=== PATIENT | female | born 1995 | race American Indian/Alaskan Native ===

== ENCOUNTER 2017-03-14 17:37 | Inpatient (IN) | payer OTHER ==
[2017-03-14] MEDS ORDERED: Fluarix Quad 2017-2018(36 MOS+ IM ONE (18:56)
[2017-03-14] MEDS ORDERED: POLYCILLIN/NS 2 GM/100 ML 2 GM/100 ML BAG IV ONE (19:10)
[2017-03-14 19:22] LABS: Urine Drugs of Abuse Note Disclamer
[2017-03-14 19:37] LABS: Bilirubin,Urine NEG (Negative); Blood,Urine SM (Negative); Ketones,Urine NEG (Negative); Leukocyte Esterase,Urine SM (Negative); Nitrite,Urine NEG (Negative); Protein,Urine <15 mg/dL mg/dL (Negative); Urobilinogen,Urine < 2.0 mg/dL (<2.0)
--- NOTE | 2017-03-14 20:24 | Ultrasound Report ---
FINAL REPORT PROCEDURE: US OB FOLLOW UP TECHNIQUE: Real-time limited sonographic examination was performed for evaluation of size, position, heartbeat, fluid volume for each fetus with image documentation (1 or more fetuses). CPT 43107 HISTORY: Evaluate age COMPARISON: No prior studies are available for comparison. FINDINGS: There is a single living intrauterine gestation currently visualize vertex presentation with heart rate of 159 beats per minute. The amount of amniotic fluid subjectively appears normal. Normal amniotic fluid index measured at 13.3 centimeter. The placenta is located fundal and is grade 2. The internal cervical os is not visualized. Detailed exam of the anatomy was not performed as this was not requested. measurements were obtained: Biparietal diameter 8.4 centimeter equaled 34 weeks 0 days Head circumference 30.1 centimeter equaled 33 week 3 day Abdominal circumference 29.2 centimeter equaled 33 week 1 day Femur length 6.6 centimeter equaled 34 week 0 day Estimated weight 2210 grams. This equals 4 pounds 14 ounces +/-12 ounces Average sonographic age 33 weeks 5 days placing the EDC 04/27/2017 +/-3 weeks IMPRESSION: Single living intrauterine gestation visualized currently vertex presentation. Subjectively and by amniotic fluid index the amount of amniotic fluid appears normal. Average sonographic age by today's study 33 weeks 5 days. This places the EDC at 04/27/2017 +/-3 weeks. Further evaluation was neither requested nor performed.
[2017-03-14 20:55] LABS: Basophils % (Auto) 0.3 % (0.0-1.8); Eosinophils % (Auto) 0.2 % (0.0-4.3); Hematocrit 34.2 % (30.3-42.9); Hemoglobin 10.9 gm/dl (10.1-14.3); Mean Corpuscular HGB Conc 32 % (30-34); Mean Corpuscular Volume 75 fl (79-97); Platelet Count 290 K/mm3 (140-440); Red Blood Count 4.57 M/mm3 (3.65-5.03); Red Cell Distribution Width 16.4 % (13.2-15.2); White Blood Count 13.9 K/mm3 (4.5-11.0)
[2017-03-14] MEDS ORDERED: AMBIEN PO PRN (21:07)
[2017-03-14] MEDS ORDERED: BENADRYL PO PRN (21:07)
[2017-03-14] MEDS ORDERED: MYLICON PO PRN (21:07)
[2017-03-14] MEDS ORDERED: ZOFRAN IV PRN (21:07)
[2017-03-14] MEDS ORDERED: COLACE PO PRN (21:07)
[2017-03-14] MEDS ORDERED: DEEP SEA NS PRN (21:07)
[2017-03-14] MEDS ORDERED: TYLENOL PO PRN (21:07)
[2017-03-14 21:13] LABS: Mean Corpuscular Hemoglobin 24 pg (28-32)
[2017-03-14 21:30] LABS: HIV-1 Antigen p24 Non React (Non React); HIVR-1/2 Ab Non React (Non React)
[2017-03-14] MEDS ORDERED: LACTATED RINGERS 1,000 ML IV SCH (22:00)
[2017-03-14] MEDS ORDERED: CELESTONE SOLUSPAN IM SCH (22:00)
[2017-03-14] MEDS: POLYCILLIN/NS 1 GM/50 ML 1 GM/50 ML BAG IV SCH (22:47)
[2017-03-15] MEDS: POLYCILLIN/NS 1 GM/50 ML 1 GM/50 ML BAG IV SCH (02:42)
[2017-03-15] MEDS: LACTATED RINGERS 1,000 ML IV SCH ×3 (02:42→13:07)
[2017-03-15] MEDS ORDERED: ERY-TAB PO SCH (05:00)
--- NOTE | 2017-03-15 05:11 | History and Physical Report ---
History of Present Illness Date of examination: 03/15/17 Date of admission: 03/14/17 17:38 Chief complaint: rupture of membranes History of present illness: Pt is a 21 year old primigravida with unknown LMP in October 2016 at 33w6d (JENNIFFER ) by ultrasound today who presented on 03/14/17 from the office with rupture of membranes at 0630 am 03/14/17. She presented on 03/14/17 to [facility] to establish care with suspicion that she was 17 wks , but her fundal height was much larger than expected and pooling was noted on speculum exam. She has had no care this . Since admission she has had an ultrasound on 03/14/17 that gives an JENNIFFER of at 33w5d, cephalic, ROCIO 13.3 cm. Fundal grade 1 placenta. EFW 2210g. Past History Past Medical History: other (obesity ) Past Surgical History: no surgical history Family/Genetic History: diabetes, hypertension Social history: no significant social history - Obstetrical History Expected Date of Delivery: 04/27/17 Actual Gestation: 33 Week(s) 6 Day(s) : 1 Para: 0 Medications and Allergies Allergies Allergy/AdvReac Type Severity Reaction Status Date / Time No Known Allergies Allergy Unverified 03/14/17 17:54 Home Medications Medication Instructions Recorded Confirmed Last Taken Type One Daily Tablet 1 tab PO QDAY 03/14/17 03/14/17 03/14/17 10:00 History Active Meds: Active Medications Acetaminophen (Tylenol) 650 mg PO Q4H PRN PRN Reason: Pain MILD(1-3)/Fever >100.5/ARGUELLES Amoxicillin (Trimox) 250 mg PO Q8HR [facility]ANGO PRN Reason: Protocol Stop: 03/21/17 21:14 Betamethasone Acet/Betameth SodPhos (Celestone Soluspan) 12 mg IM Q24H [facility] Stop: 03/15/17 22:01 Last Admin: 03/14/17 22:39 Dose: 12 mg Diphenhydramine HCl (Benadryl) 25 mg PO Q6H PRN PRN Reason: Itching Docusate Sodium (Colace) 100 mg PO Q12H PRN PRN Reason: Constipation Erythromycin (Marciano-Tab) 250 mg PO Q6H [facility] PRN Reason: Protocol Stop: 03/21/17 21:59 Last Admin: 03/15/17 05:04 Dose: 250 mg Lactated Ringer's (Lactated Ringers) 1,000 mls @ 125 mls/hr IV DIRECT CHILANGO Last Admin: 03/15/17 02:42 Dose: 125 mls/hr Lactated Ringer's (Lactated Ringers) 1,000 mls @ 125 mls/hr IV DIRECT CHILANGO Last Admin: 03/15/17 04:25 Dose: 125 mls/hr Ampicillin Sodium (Polycillin/Ns 2 Gm/100 Ml) 2 gm in 100 mls @ 100 mls/hr IV Q6H [facility] Stop: 03/17/17 17:29 Multivitamins/Iron/Calcium ( Vitamin) 1 each PO QDAY [facility] Simethicone (Mylicon) 80 mg PO Q6H PRN PRN Reason: Gas pain Sodium Chloride (Deep Sea) 2 spray NS Q4H PRN PRN Reason: Congestion Zolpidem Tartrate (Ambien) 10 mg PO ONCE PRN PRN Reason: Sleep Review of Systems All systems: negative - Vital Signs Vital signs: Vital Signs Temp Pulse Resp BP 98.2 F 104 H 18 132/80 03/14/17 18:31 03/14/17 18:31 03/14/17 18:31 03/14/17 18:31 Temp Pulse Resp BP Pulse Ox 98.5 F 129 H 18 117/62 100 03/15/17 02:24 03/15/17 05:05 03/15/17 02:24 03/15/17 05:04 03/15/17 05:05 - Physical Exam Breasts: Positive: deferred Cardiovascular: Regular rate Lungs: Positive: Clear to auscultation Abdomen: Positive: soft (obese, gravid ) Uterus: Positive: enlarged (gravid ) Extremities: Positive: normal - Obstetrical FHR: category 2 Uterine Contraction Monitor Mode: External Cervical Dilatation: 2 (per RN ) Uterine Contraction Pattern: Irregular Uterine Tone Measurement Phase: Resting Results Result Diagrams: 03/14/17 20:06 Abnormal lab results 03/14/17 Range/Units 20:06 WBC 13.9 H (4.5-11.0) K/mm3 MCV 75 L (79-97) fl MCH 24 L (28-32) pg RDW 16.4 H (13.2-15.2) % Seg Neutrophils % 80.4 H (40.0-70.0) % Seg Neutrophils # 11.2 H (1.8-7.7) K/mm3 All other labs normal. Assessment and Plan A: IUP at 33w6d PPROM No care Morbid Obesity P: Admit to anteapartum service. Betamethasone course. panel Latency antibiotics. Closely monitor maternal and status.
--- NOTE | 2017-03-15 05:19 | Event Note ---
Date: 03/15/17 On-call MD ordered IV ampicillin and erythromycin however it is on back order from [place]. Pt will be given oral erythromycin 250 mg PO q 8 hrs. Continue to monitor status.
[2017-03-15] MEDS ORDERED: NARCAN 2 MG/2 ML ONE (08:38)
[2017-03-15] MEDS ORDERED: REGLAN ONE (09:46)
[2017-03-15] MEDS ORDERED: BICITRA ONE (09:46)
[2017-03-15] MEDS ORDERED: PEPCID IV ONE (09:46)
[2017-03-15] MEDS ORDERED: ANCEF/STERILE WATER 2 GM/20 ML 2 GM/20 ML SYRINGE IV ONE (09:47)
--- NOTE | 2017-03-15 09:49 | Event Note ---
Date: 03/15/17 Pt now with frequent prolonged variable decels lasting 3-4 minutes down to the 90s without any contractions. She has had 4 in the last 45 minutes. Decision made to proceed with delivery. NICU and anesthesia notified.
--- NOTE | 2017-03-15 09:54 | Anesthesia Day of Surgery ---
Anesthesia Day of Surgery - Day of Surgery Patient Examined: Yes Patient H&P Reviewed: Yes Patient is NPO: Yes
--- NOTE | 2017-03-15 09:54 | Anesthesia Consultation ---
Anesthesia Consult and Med Hx Date of service: 03/15/17 - Airway Anesthetic Teeth Evaluation: Good ROM Head & Neck: Adequate Mental/Hyoid Distance: Adequate Mallampati Class: Class III Intubation Access Assessment: Possibly Difficult - Pre-Operative Health Status ASA Pre-Surgery Classification: ASA3 Proposed Anesthetic Plan: Epidural, Spinal - Pulmonary Hx Asthma: No COPD: No Hx Pneumonia: No - Cardiovascular System Hx Hypertension: No - Central Nervous System Hx Seizures: No Hx Psychiatric Problems: No - Endocrine Hx Renal Disease: No Hx End Stage Renal Disease: No Hx Hypothyroidism: No Hx Hyperthyroidism: No - Hematic Hx Anemia: No Hx Sickle Cell Disease: No - Other Systems Hx Alcohol Use: No
[2017-03-15] MEDS ORDERED: LACTATED RINGERS 1,000 ML IV SCH (10:00)
[2017-03-15] MEDS ORDERED: PRENATAL VITAMIN PO SCH (10:00)
[2017-03-15] MEDS ORDERED: WATER FOR IRRIG STERILE IR ONE (10:05)
[2017-03-15] MEDS ORDERED: NACL 0.9% IR ONE (10:05)
[2017-03-15] MEDS ORDERED: MORPHINE ONE (10:06)
[2017-03-15] MEDS ORDERED: BICITRA PO NR (10:30)
[2017-03-15] MEDS ORDERED: PEPCID IV NR (10:30)
[2017-03-15] MEDS ORDERED: PITOCin/NS 20 UNIT/1000ML DRIP 20 UNITS/1,000 ML BAG IV SCH ×2 (10:30→13:00)
[2017-03-15] MEDS ORDERED: MORPHINE IV PRN ×2 (10:30→12:30)
[2017-03-15] MEDS ORDERED: ZOFRAN IV PRN ×2 (10:30→12:30)
[2017-03-15] MEDS ORDERED: REGLAN IV NR (10:30)
[2017-03-15] MEDS ORDERED: ANCEF/STERILE WATER 2 GM/20 ML 2 GM/20 ML SYRINGE IV NR (10:30)
[2017-03-15] MEDS ORDERED: PHENERGAN PR PRN (10:30)
[2017-03-15] MEDS ORDERED: NARCAN 0.4 MG/1 ML IV PRN ×2 (10:30→13:00)
[2017-03-15] MEDS ORDERED: BENADRYL IV PRN (10:30)
[2017-03-15] MEDS ORDERED: NEO SYNEPHRINE/NS Syringe(OR USE) IV ONE (10:48)
[2017-03-15] MEDS ORDERED: XYLOCAINE MPF 2% ONE ×3 (10:48)
[2017-03-15] MEDS ORDERED: NACL 0.9% 1000 ML 1,000 ML ONE (10:58)
[2017-03-15] MEDS ORDERED: SODIUM CHLORIDE FLUSH SYRINGE 10 ML IV PRN ×2 (11:00→13:00)
[2017-03-15] MEDS ORDERED: ZOFRAN ONE (11:23)
--- NOTE | 2017-03-15 12:03 | Procedure Note ---
OB Delivery Note - Delivery Date of Delivery: 03/15/17 Surgeon: CRISSY VELAZQUEZ Estimated blood loss: other (600 mL) - Section Preop diagnosis: nonreassuring FHR tracing Postop diagnosis: same section procedure: section, primary low transverse Disposition: PACU Complications: none Narrative: Please see delivery note. - A at 1 minute: 8 at 5 minutes: 8 Infant Gender: Female (2268g (5 lb 0 oz) @ 1056 am)
--- NOTE | 2017-03-15 12:10 | Operative Report ---
Operative Report Operative Report: Date of procedure: March 15, 2017 Preoperative diagnosis: 1) IUP at 33w6d 2) PPROM 3) Prolonged ROM 4) Nonreassuring status 5) Morbid Obesity 6) No care Postoperative diagnosis: Same Procedure: Primary low tranverse section Surgeon: Gali Palacios M.D. Anesthesia: Spinal-epidural Findings: 1) Viable female , Apgars 8 and 8, weight 2268g, (5 lb 0 oz); Tight Nuchal cord x 2 in vertex presentation 2) Normal-appearing uterus ovaries and tubes Estimated blood loss: 600 mL IV fluids: 2500 mL Urine output: 200 mL, clear at the end of the procedure Drains: Sanders to gravity Specimens: Placenta to pathology Complications: None. Counts correct x 3 Disposition: Stable to PACU Indication for procedure: Pt is a 21 year old primigravida at 33w6d admitted with PPROM and no care who began to have frequent deep variable decels lasting 2-4 minutes without contractions. The decision was made to proceed with delivery. Operation in detail: After the risks, benefits, alternatives and complications were explained to the patient she gave informed consent for the procedure. She was subsequently taken to the operating room where spinal anesthesia was noted to be adequate. She was subsequently placed in the dorsal supine position with leftward tilt and prepped and draped in a normal sterile fashion. heart tones were noted to be in the 150s prior to incision. A timeout was performed. A Pfannenstiel skin incision was made with the knife and carried down to the layer of the fascia with the Bovie. The fascia was incised in the midline and the fascial incision was extended bilaterally with the Bovie. Attention was then turned to the superior aspect of the incision which was grasped with two Kochers, tented up, and dissected off the rectus muscles. Attention was then turned to the inferior aspect of the incision which was grasped with two Kochers , tented up and dissected off the rectus muscles. The rectus muscles were then in the midline and partially transected for adequate visualization. The peritoneum was then entered bluntly. The peritoneal incision was extended with good visualization of the bladder. The peritoneal incision was then stretched. An Pete self-retaining retractor was placed for visualization. The bladder blade was placed. The vesicouterine peritoneum was grasped with smooth pickups and incised with Metzenbaum scissors. Metzenbaum scissors were used to extend the incision bilaterally. The bladder flap was then created digitally and the bladder blade was replaced. A transverse incision was made in the lower uterine segment with a knife and extended bilaterally with the bandage scissors. The head was delivered without difficulty followed by shoulders and body. was bulb suctioned at delivery. The cord was clamped and cut and the was handed to NICU staff in attendance. The placenta was then delivered manually. The uterus was then exteriorized and cleared of all clots and debris. The hysterotomy was then reapproximated with 0 Vicryl in a running locked fashion. A second layer of the same suture was used in imbricating fashion. The hysterotomy was inspected and hemostasis was noted. The Pete self-retaining retractor was removed. The gutters were irrigated and cleared of all clots and debris. The hysterotomy was again inspected and noted to be hemostatic. Surgicel was placed over the hysterotomy. The peritoneum and rectus muscles were then reapproximated with 2-0 Vicryl in a running fashion. The cut edges of the rectus muscle were covered with Surgicel and were noted to be hemoostatic. The fascia was reapproximated with 0 Vicryl in a running fashion. The subcutaneous tissue was reapproximated with 3-0 Vicryl in a running fashion. The skin was reapproximated with 4-0 Vicryl in a subcuticular fashion. The incision was then covered with steri strips and a pressure dressing. The procedure was then ended. The patient tolerated the procedure well and was taken to the PACU in stable condition. All instrument, lap, and needle counts were correct 3.
[2017-03-15] MEDS ORDERED: MYLICON PO PRN (12:30)
--- NOTE | 2017-03-15 12:32 | Post Anesthesia Evaluation ---
- Post Anesthesia Evaluation Patient Participated: Yes Airway Patent: Yes Stable Respiratory Function: Yes Temp > 96.8F: Yes Pain Manageable: Yes Adequeate Hydration: Yes Anesthesia Complications: No Block Receding Appropriately: Yes
[2017-03-15] MEDS ORDERED: TUCKS PAD TP PRN (13:00)
[2017-03-15] MEDS ORDERED: TORADOL IV PRN (13:00)
[2017-03-15] MEDS ORDERED: LANSINOH TP PRN (13:00)
[2017-03-15] MEDS: TORADOL IV PRN (13:06)
[2017-03-15] MEDS: D5LR 1,000 ML IV SCH ×2 (13:08→21:16)
[2017-03-15] MEDS ORDERED: POLYCILLIN/NS 2 GM/100 ML 2 GM/100 ML BAG IV SCH (22:30)
[2017-03-16] MEDS: TORADOL IV PRN (00:43)
[2017-03-16] MEDS: D5LR 1,000 ML IV SCH (04:42)
[2017-03-16] MEDS ORDERED: BOOSTRIX IM ONE (06:00)
[2017-03-16 06:24] LABS: Hematocrit 28.3 % (30.3-42.9)
--- NOTE | 2017-03-16 07:38 | Progress Note ---
Assessment and Plan O: VSS AF PP H/H: 9.0/28.3 A: Stable POD #1 s/P 34 week primary C/S PPROM distress P: Iron BID Subjective - Subjective Date of service: 03/16/17 Patient reports: appetite normal, voiding normally, pain well controlled, flatus , ambulating normally : doing well, in NICU Objective - Vital Signs Latest vital signs: Vital Signs Temp Pulse Resp BP BP Pulse Ox 03/16/17 01:13 16 03/16/17 00:43 16 03/15/17 23:12 98.5 F 90 18 110/70 03/15/17 22:50 98.5 F 88 18 110/70 03/15/17 21:10 98.1 F 92 H 18 108/64 03/15/17 13:12 98.9 F 03/15/17 12:10 97.5 F L 03/15/17 09:48 114 H 100 03/15/17 09:43 117 H 100 03/15/17 09:38 95 H 100 03/15/17 09:33 103 H 100 03/15/17 09:28 95 H 97 03/15/17 09:23 95 H 100 03/15/17 09:18 99 H 100 03/15/17 09:13 102 H 100 03/15/17 09:08 109 H 100 03/15/17 09:04 100 H 104/59 03/15/17 09:03 109 H 100 03/15/17 08:58 106 H 100 03/15/17 08:53 110 H 100 03/15/17 08:48 108 H 100 03/15/17 08:43 99 H 100 03/15/17 08:38 113 H 100 03/15/17 08:34 107 H 112/59 03/15/17 08:33 115 H 100 03/15/17 08:28 115 H 98 03/15/17 08:27 119 H 94 03/15/17 08:23 112 H 97 03/15/17 08:18 116 H 98 03/15/17 08:13 116 H 98 03/15/17 08:08 111 H 98 03/15/17 08:04 115 H 108/55 03/15/17 08:03 112 H 98 03/15/17 07:58 116 H 99 03/15/17 07:53 117 H 99 03/15/17 07:48 114 H 97 03/15/17 07:43 123 H 100 03/15/17 07:38 107 H 97 03/15/17 07:33 122 H 98 03/15/17 07:28 112 H 110/56 98 03/15/17 07:23 97.4 F L 113 H 24 110/56 97 Intake and Output 03/15/17 03/16/17 03/16/17 22:59 06:59 14:59 Intake Total 1300 1169.167 Output Total 600 500 Balance 700 669.167 Intake: IV 1000 929.167 D5lr 1,000 ml @ 125 mls/ 1000 929.167 hr IV DIRECT CHILANGO Rx#: [id number] Oral 300 Intake, Free Water 240 Output: Urine 600 500 Void 600 500 Other: Total, Intake Amount 300 Total, Output Amount 600 500 - Exam Breasts: Present: deferred Lungs: Present: Normal air movement Abdomen: Present: normal appearance, soft, normal bowel sounds. Absent: distention, tenderness Vulva: both: normal Uterus: Present: normal, firm, fundal height below umbilicus. Absent: bogginess , tenderness Extremities: Present: normal Incision: Present: normal, dry, intact, dressed - Labs Labs: Abnormal lab results 03/16/17 Range/Units 05:38 Hgb 9.0 L (10.1-14.3) gm/dl Hct 28.3 L (30.3-42.9) %
[2017-03-16] MEDS: MOTRIN PO PRN ×2 (10:42→18:13)
[2017-03-16] MEDS: FEOSOL PO SCH (10:42)
[2017-03-16] MEDS ORDERED: M-M-R II VACCINE SUB-Q ONE (12:13)
[2017-03-16] MEDS: PERCOCET 5/325 PO PRN (18:13)
[2017-03-16] MEDS ORDERED: TRIMOX PO SCH (21:15)
[2017-03-16] MEDS ORDERED: ERY-TAB PO SCH (22:00)
[2017-03-17] MEDS: PERCOCET 5/325 PO PRN ×3 (05:46→21:25)
[2017-03-17] MEDS ORDERED: BOOSTRIX IM ONE (06:00)
[2017-03-17] MEDS: FEOSOL PO SCH (11:08)
--- NOTE | 2017-03-17 16:33 | Progress Note ---
Assessment and Plan O: VSS AF PP H/H: 9.0/28.3 A: Stable POD #2 s/p primary C/S PPROM-NRFT anemia P: D/C am Subjective - Subjective Date of service: 03/17/17 Patient reports: appetite normal, voiding normally, pain well controlled, flatus , ambulating normally Hi Hat: doing well, in NICU Objective - Vital Signs Latest vital signs: Vital Signs Temp Pulse Resp BP BP Pulse Ox 03/17/17 07:45 98.2 F 83 18 118/76 03/17/17 01:57 98.5 F 100 H 22 112/68 97 03/16/17 18:13 20 03/16/17 17:08 97.5 F L 112 H 20 125/76 99 Intake and Output 03/17/17 03/17/17 03/17/17 06:59 14:59 22:59 Intake Total 360 360 Balance 360 360 Intake: Oral 360 Intake, Free Water 360 Other: Total, Intake Amount 240 # Voids Void 1 1 - Exam Breasts: Present: deferred Lungs: Present: Normal air movement Abdomen: Present: normal appearance, soft. Absent: distention Vulva: both: normal Uterus: Present: normal, firm, fundal height below umbilicus. Absent: bogginess Extremities: Present: normal Incision: Present: normal, dry, intact, other (steri strips)
--- NOTE | 2017-03-17 16:35 | Discharge Summary ---
Providers - Providers Date of Admission: 03/14/17 17:38 Date of discharge: 03/18/17 Attending physician: CRISSY VELAZQUEZ 03/15/17 12:12 Consult to [employer] [CONS] Routine Reason For Exam: Primary care physician: CRISSY VELAZQUEZ Hospitalization Reason for admission: rupture of membranes (33 weeks no care PPROM, decels), IUP at term Delivery: Procedure: primary low transverse Episiotomy: none Laceration: none Incision: normal, dry, intact Other procedures: none complications: none Discharge diagnosis: IUP at term delivered baby: female Condition at discharge: Good Disposition: DC-01 TO HOME OR SELFCARE Plan - Discharge Medications Prescriptions: Ferrous Sulfate [Feosol 325 MG tab] 325 mg PO BID PRN #60 tablet PRN Reason: constipation Ferrous Sulfate [Feosol 325 MG tab] 325 mg PO BID #60 tablet Ibuprofen [Motrin] 800 mg PO Q8HR PRN #30 tablet PRN Reason: Pain oxyCODONE /ACETAMINOPHEN [Percocet 5/325] 1 tab PO Q6HR PRN #40 tablet PRN Reason: Pain - Provider Discharge Summary Activity: routine, no sex for 6 weeks, no heavy lifting 4 weeks, no strenuous exercise Diet: routine Instructions: routine Additional instructions: [] Smoking cessation referral if applicable(refer to patient education folder for contact #) [] Refer to [facility] Booklet Call your doctor immediately for: * Fever > 100.5 * Heavy vaginal bleeding ( >1 pad per hour) * Severe persistent headache * Shortness of breath * Reddened, hot, painful area to leg or breast * Drainage or odor from incision. * Keep incision clean and dry at all times and follow doctor's instructions regarding bathing/showering - Follow up plan Follow up: CRISSY VELAZQUEZ MD [Primary Care Provider] - 14 Days (RTO 2 weeks incision check)
[2017-03-18] MEDS: MOTRIN PO PRN (05:08)
[2017-03-18] MEDS: FEOSOL PO SCH (10:42)
[2017-03-18] MEDS ORDERED: Fluarix Quad 2017-2018(36 MOS+ IM ONE (12:00)
[2017-03-18 19:32] VITALS: BP 137/80
[2017-03-19] MEDS ORDERED: Fluarix Quad 2017-2018(36 MOS+ IM ONE (12:00)
== END 2017-03-18 19:55 | disposition home or self-care (01) | DRG 765 ==
LOC: TRG 17:37 → LD 17:38 → OB 03-15 13:38
PROVIDERS: ADMIT Obstetrics & Gynecology; ATTEND Obstetrics & Gynecology
PROC: 3E0234Z Introduction of Serum, Toxoid and Vaccine into Muscle, Percutaneous Approach (ICD-10-PCS; 2017-03-14)
PROC: 10D00Z1 Extraction of Products of Conception, Low, Open Approach (ICD-10-PCS; principal; 2017-03-15)
DX: O42.013 Preterm premature rupture of membranes, onset of labor within 24 hours of rupture, third trimester (principal); Z68.41 Body mass index [BMI] 40.0-44.9, adult; O75.0 Maternal distress during labor and delivery; Z3A.33 33 weeks gestation of pregnancy; Z37.0 Single live birth; E66.01 Morbid (severe) obesity due to excess calories; Z23 Encounter for immunization; O76 Abnormality in fetal heart rate and rhythm complicating labor and delivery; O90.81 Anemia of the puerperium; D64.9 Anemia, unspecified
CPT/HCPCS: 36415; 76816; 80307; 81001; 85014; 85018; 85025; 85660; 86592; 86706; 86762; 86803; 86850; 86900; 86901; 87116; 87806; 88307; 90471; 90686; 90715; 99211; G0463; J0290; J0690; J0702; J1885; J2270; J2310; J2370; J2405; J2590; J2765; J7030; J7120; J7121